=== PATIENT | male | born 1985 | race Hispanic/Latino ===

== ENCOUNTER 2016-06-12 14:17 | Emergency (ER) | payer OTHER ==
[~2016-06-12] VITALS: Ht 185.4 cm; Wt 83.5 kg
[~2016-06-12 14:17] MED LIST: ADDERALL15 MG PO; ADDERALL30 MG; AMBIEN10 MG PO; AMOXICILLIN500 M1 PO; AMOXICILLIN500 MG PO; AUGMENTIN875 MG PO; BENTYL10 MG PO; CLEOCIN300 MG PO; ENULOSE10 GM/15 M PO; FIORICET 50-301 EACH PO; FLEET ENEMA-AD118 ML PR; LEXAPRO10 MG PO; LIBRIUM25 MG PO; MILK OF MAGNESI10 ML PO; MOTRIN600 MG PO; MOTRIN800 MG PO; NAPROSYN375 MG PO; NAPROSYN500 MG PO; NEOSPORIN + P28.3 GM TP; NOHOMEMEDS; PERCOCET 5/31 TABLET PO; TRAMADOL HCL50 MG PO; TYLENOL EXTRA500 MG PO; ULTRAM50 MG PO
[2016-06-12 16:06] VITALS: BP 132/94
== END 2016-06-12 16:07 | disposition home or self-care (01) ==
LOC: EME 14:17
DX: J06.9 Acute upper respiratory infection, unspecified (principal); F17.200 Nicotine dependence, unspecified, uncomplicated; Z88.2 Allergy status to sulfonamides
CPT/HCPCS: 71020; 99281; 99284

== ENCOUNTER 2016-06-14 17:48 | Emergency (ER) | payer OTHER ==
[~2016-06-14] VITALS: Ht 185.4 cm; Wt 81.6 kg
[2016-06-14 19:08] LABS: HEMATOCRIT 53.8 % (38.0-50.0); MCH 33.5 PG (29.0-34.0); MCHC 33.8 G/DL (30.0-36.0); MCV 98.9 FL (86-99); PLATELET COUNT 365 K/uL (156-360); RBC DIS.WIDTH-CV 11.9 % (11.8-14.6); RBC DIS.WIDTH-SD 43.3 % (39-53); RED BLOOD COUNT 5.44 M/uL (4.00-5.50)
[2016-06-14 19:36] LABS: SERUM ETHYL ALCOHOL 390 mg/dL
[2016-06-14 19:39] LABS: CREATINE KINASE 142 IU/L (1-294); SALICYLATE < 5.0 MG/DL (15-30); TOTAL CK 142 IU/L (1-294)
[2016-06-14 19:45] LABS: CK-MB 0.7 ng/mL (0.0-4.9)
[2016-06-14 20:11] LABS: BASOPHIL COUNT 0.1 K/uL (0-0.1); EOSINOPHIL (%) 0.2 % (0-5); HEMATOLOGY COMMENT 1 SMEAR COMPATIBLE; IMMATURE GRANULOCYTE (%) 2.2 % (0.0-0.7); IMMATURE GRANULOCYTE COUNT 2.7 K/uL; LYMPHOCYTE COUNT 4.2 K/uL (1.0-2.8); MONOCYTE (%) 6.2 % (3-12); MONOCYTE COUNT 0.7 K/uL (0-0.8); NEUTROPHIL (%) 55.9 % (45-76); NEUTROPHIL COUNT 6.7 K/uL (1.8-6.4); USER ID NJV
[2016-06-14 21:50] LABS: ADD MIUA? NO; BILIRUBIN NEGATIVE; BLOOD NEGATIVE; COLOR YELLOW ((YELLOW)); GLUCOSE (STRIP) NEGATIVE; KETONES NEGATIVE; LEUKOCYTES NEGATIVE; NITRITE NEGATIVE; PROTEIN (STRIP) NEGATIVE; SPECIFIC GRAVITY 1.019 (1.000-1.030); UROBILINOGEN 0.2 MG/DL (0.2-1.0)
[2016-06-14 22:13] LABS: AMPHETAMINE NEGATIVE (500 ng/mL); BARBITURATES NEGATIVE (200 ng/mL); BENZODIAZEPINES NEGATIVE (150 ng/mL); COCAINE NEGATIVE (150 ng/mL); INTERNAL CONTROLS VALID? YES; METHADONE NEGATIVE (200 ng/mL); METHAMPHETAMINE NEGATIVE (500 ng/mL); OPIATES (MORPHINE) NEGATIVE (100 ng/mL); OXYCODONE NEGATIVE (100 ng/mL); PHENCYCLIDINE NEGATIVE (25 ng/mL); PROPOXYPHENE NEGATIVE (300 ng/mL); THC CANNABINOIDS NEGATIVE (50 ng/mL); TRICYCLIC ANTIDEPRESSANTS NEGATIVE (300 ng/mL)
[2016-06-14 22:47] LABS: CHLORIDE 114 mEq/L (99-109); POTASSIUM 5.3 mEq/L (3.7-5.4); SODIUM 150 mEq/L (136-147)
[2016-06-14 22:49] LABS: GLUCOSE 95 mg/dL (70-99)
[2016-06-14 22:51] LABS: ANION GAP 14 MEQ/L (2-14); TOTAL BILIRUBIN 0.1 mg/dL (0.0-1.0)
[2016-06-14 22:53] LABS: ALKALINE PHOSPHATASE 74 IU/L (3-129); GFR ESTIMATE (CALCULATED) > 59 mL/min/
[2016-06-14 22:54] LABS: UREA NITROGEN (BUN) 10 mg/dL (9-23)
[2016-06-15 06:50] VITALS: BP 115/61
== END 2016-06-15 06:52 | disposition home or self-care (01) ==
LOC: EME 17:48
PROVIDERS: Emergency Medicine
DX: F10.129 Alcohol abuse with intoxication, unspecified (principal); Y90.8 Blood alcohol level of 240 mg/100 ml or more; R00.0 Tachycardia, unspecified; F43.21 Adjustment disorder with depressed mood; F17.200 Nicotine dependence, unspecified, uncomplicated
CPT/HCPCS: 70450; 80053; 81003; 82550; 82553; 85025; 90837; 93005; 99281; 99285; G0480; J7030

== ENCOUNTER 2016-08-19 11:04 | Emergency (ER) | payer OTHER ==
[~2016-08-19] VITALS: Ht 185.4 cm; Wt 83.4 kg
[2016-08-19 11:44] LABS: HEMATOCRIT 47.8 % (38.0-50.0); MCH 32.5 PG (29.0-34.0); MCHC 33.5 G/DL (30.0-36.0); MEAN PLAT.VOLUME 8.6 uM^3 (9.0-12.4); PLATELET COUNT 289 K/uL (156-360); RBC DIS.WIDTH-CV 11.6 % (11.8-14.6); RBC DIS.WIDTH-SD 41.3 % (39-53); RED BLOOD COUNT 4.93 M/uL (4.00-5.50); WHITE BLOOD COUNT 6.6 K/uL (4.1-10.2)
[2016-08-19 11:58] LABS: CHLORIDE 111 mEq/L (99-109); POTASSIUM 3.9 mEq/L (3.7-5.4); SODIUM 142 mEq/L (136-147)
[2016-08-19 12:00] LABS: GLUCOSE 94 mg/dL (70-99)
[2016-08-19 12:01] LABS: ANION GAP 10 MEQ/L (2-14)
[2016-08-19 12:02] LABS: TOTAL BILIRUBIN 0.2 mg/dL (0.0-1.0)
[2016-08-19 12:04] LABS: ALKALINE PHOSPHATASE 49 IU/L (3-129); GFR ESTIMATE (CALCULATED) > 59 mL/min/
[2016-08-19 12:05] LABS: UREA NITROGEN (BUN) 19 mg/dL (9-23)
[2016-08-19 12:07] LABS: LIPASE 58 U/L (1.0-51.0)
[2016-08-19 12:21] LABS: AMYLASE 100 IU/L (1-118)
[2016-08-19 12:45] LABS: ADD MIUA? YES; BILIRUBIN NEGATIVE; BLOOD MODERATE; COLOR YELLOW ((YELLOW)); GLUCOSE (STRIP) NEGATIVE; KETONES 5; LEUKOCYTES NEGATIVE; NITRITE NEGATIVE; PROTEIN (STRIP) NEGATIVE; SPECIFIC GRAVITY 1.023 (1.000-1.030); UROBILINOGEN 0.2 MG/DL (0.2-1.0)
[2016-08-19 13:00] LABS: INFLUENZA A VIRAL ANTIGEN NEGATIVE; INFLUENZA B VIRAL ANTIGEN NEGATIVE
[2016-08-19 13:07] LABS: BACTERIA RARE /HPF; EPITHELIAL CELLS NONE SEEN /HPF; MUCUS NONE SEEN /LPF; RED BLOOD CELLS 0-5 /HPF (0-5); UCUL ADDED? NO; WHITE BLOOD CELLS 0-5 /HPF (0-5)
[2016-08-19] MEDS ORDERED: ZOFRAN4 MG PO (13:36)
[2016-08-19] MEDS ORDERED: TRAMADOL HCL50 MG PO (13:36)
[2016-08-19] MEDS ORDERED: OMEPRAZOLE40 M1 PO (13:36)
[2016-08-19 13:59] VITALS: BP 124/85
== END 2016-08-19 14:00 | disposition home or self-care (01) ==
LOC: EME 11:04
PROVIDERS: Physician Assistant
DX: K29.20 Alcoholic gastritis without bleeding (principal); F17.200 Nicotine dependence, unspecified, uncomplicated
CPT/HCPCS: 80053; 81003; 82150; 83690; 85027; 87502; 99281; 99284

== ENCOUNTER 2016-12-27 01:11 | Emergency (ER) | payer OTHER ==
[~2016-12-27] VITALS: Ht 182.9 cm; Wt 81.8 kg
[~2016-12-27 01:11] MED LIST changes: +OMEPRAZOLE40 M1 PO; +ZOFRAN4 MG PO
[2016-12-27 01:20] VITALS: BP 144/93
[2016-12-27] MEDS ORDERED: ATARAX,VISTARIL25 MG PO (02:04)
[2016-12-27] MEDS ORDERED: PROVENTIL HFA6.7 GM IH (02:05)
[2016-12-27 02:10] LABS: HEMATOCRIT 44.8 % (38.0-50.0); MCH 32.3 PG (29.0-34.0); MCHC 34.4 G/DL (30.0-36.0); MCV 93.9 FL (86-99); MEAN PLAT.VOLUME 8.5 uM^3 (9.0-12.4); PLATELET COUNT 241 K/uL (156-360); RBC DIS.WIDTH-CV 11.2 % (11.8-14.6); RBC DIS.WIDTH-SD 38.9 % (39-53); RED BLOOD COUNT 4.77 M/uL (4.00-5.50); WHITE BLOOD COUNT 12.4 K/uL (4.1-10.2)
[2016-12-27 02:20] LABS: CHLORIDE 100 mEq/L (99-109); POTASSIUM 3.2 mEq/L (3.7-5.4); SODIUM 136 mEq/L (136-147)
[2016-12-27 02:22] LABS: GLUCOSE 121 mg/dL (70-99)
[2016-12-27 02:23] LABS: ANION GAP 13 MEQ/L (2-14)
[2016-12-27 02:26] LABS: GFR ESTIMATE (CALCULATED) > 59 mL/min/
[2016-12-27 02:27] LABS: UREA NITROGEN (BUN) 13 mg/dL (9-23)
[2016-12-27 02:30] LABS: TROP-I INTERPRETATION NEGATIVE; TROPONIN-I < 0.01 ng/mL (0.0-0.30)
== END 2016-12-27 02:15 | disposition home or self-care (01) ==
LOC: EME 01:11
DX: R07.9 Chest pain, unspecified (principal); J45.909 Unspecified asthma, uncomplicated; F17.200 Nicotine dependence, unspecified, uncomplicated; Z88.2 Allergy status to sulfonamides
CPT/HCPCS: 71020; 80048; 84484; 85027; 93005; 99281; 99284